=== PATIENT | female | born 1975 | race Caucasian/White ===

== ENCOUNTER 2018-09-01 10:45 | Inpatient (IN) | payer MEDICAID ==
[~2018-09-01] VITALS: Ht 162.6 cm; Wt 85.9 kg
[~2018-09-01 10:45] MED LIST: OMEP20CA10 PO
[2018-09-01] MEDS ORDERED: SODIUM CHLORIDE 0.9% 1,000 ML IV ONE (11:38)
[2018-09-01] MEDS ORDERED: KETOROLAC 30MG/ML VIAL IV STA (11:38)
[2018-09-01] MEDS ORDERED: ASPIRIN 81MG TABLET PO ONE (11:45)
[2018-09-01 12:03] LABS: BASOPHILS % 0.5 % (0.0-2.0); EOSINOPHILS % 0.9 % (0.0-5.0); HEMATOCRIT. 39.1 % (36.0-48.0); HEMOGLOBIN. 13.3 g/dL (12.0-16.0); MEAN CORPUSCULAR HEMOGLOBIN 29.1 pg (28.0-32.0); MEAN CORPUSCULAR VOLUME 85.4 fL (81.0-99.0); MEAN PLATELET VOLUME 7.7 fl (7.4-10.4); MONOCYTES % 5.7 % (2.0-8.0); NEUTROPHILS % 54.9 % (40.0-76.0); PLATELET 328 x1000/uL (130-400); RED BLOOD CELL COUNT 4.58 mill/uL (4.2-5.4); RED CELL DISTRIBUTION WIDTH 14.7 % (11.6-14.6)
[2018-09-01 12:11] LABS: CHLORIDE 106 mEq/L (98-107)
[2018-09-01 12:12] LABS: HCG SCREEN NEGATIVE
[2018-09-01 12:17] LABS: PARTIAL THROMBOPLASTIN TIME 26.3 sec (23.4-31.0); PROTHROMBIN TIME 10.3 sec (9.1-11.1)
[2018-09-01 12:41] LABS: CLARITY URINE CLOUDY (CLEAR); COLOR URINE RED (YELLOW); KETONES URINE NEGATIVE (NEGATIVE); LEUKOCYTE ESTERASE URINE TRACE (NEGATIVE); NITRITE URINE NEGATIVE (NEGATIVE); OCCULT BLOOD URINE 3+ (NEGATIVE); PROTEIN URINE 1+ (NEGATIVE); SPECIFIC GRAVITY URINE 1.008 (1.005-1.030); UROBILINOGEN URINE 0.2 E.U./dL (0.2-1.0)
[2018-09-01] MEDS ORDERED: CEFTRIAXONE 1 G PREMIX 50 ML IV ONE (13:45)
[2018-09-01 18:30] VITALS: BP 114/67
[2018-09-01 20:00] VITALS: BP 119/79
[2018-09-01] MEDS ORDERED: DEXTROSE 50% WATER 50ML SYRINGE IV PRN (22:15)
[2018-09-01] MEDS: ONDANSETRON HCL 4MG/2ML INJ IV PRN (23:01)
[2018-09-01] MEDS: ACETAMINOPHEN 325MG TABLET PO PRN (23:01)
[2018-09-01] MEDS ORDERED: LISI-186 PO (23:50)
[2018-09-01] MEDS ORDERED: METF-414 PO (23:50)
[2018-09-01] MEDS ORDERED: GLIM2TAB2 PO (23:51)
[2018-09-02] VITALS: BP 112/70
[2018-09-02 04:00] VITALS: BP 127/81
[2018-09-02 06:50] LABS: CHLORIDE 107 mEq/L (98-107)
[2018-09-02 07:05] LABS: BASOPHILS % 0.5 % (0.0-2.0); EOSINOPHILS % 1.3 % (0.0-5.0); HEMATOCRIT. 38.5 % (36.0-48.0); HEMOGLOBIN. 12.8 g/dL (12.0-16.0); LYMPHOCYTES % 44.8 % (20.0-50.0); MEAN CORPUSCULAR HEMOGLOBIN 28.6 pg (28.0-32.0); MEAN CORPUSCULAR VOLUME 85.8 fL (81.0-99.0); MEAN PLATELET VOLUME 7.9 fl (7.4-10.4); MONOCYTES % 6.6 % (2.0-8.0); NEUTROPHILS % 46.8 % (40.0-76.0); PLATELET 334 x1000/uL (130-400); RED BLOOD CELL COUNT 4.48 mill/uL (4.2-5.4); RED CELL DISTRIBUTION WIDTH 14.9 % (11.6-14.6)
[2018-09-02 07:16] LABS: LDL CHOLESTEROL 107 mg/dL (5-100)
[2018-09-02 07:18] LABS: CREATINE KINASE 100 IU/L (26-192); HDL CHOLESTEROL 58 mg/dL (40-59)
[2018-09-02 07:20] LABS: CREATINE KINASE MB FRACTION < 1.0 ng/mL (0.5-3.6)
[2018-09-02] MEDS: INSULIN LISPRO 100 UNITS/ML SUBCUT SCH ×4 (07:50→20:44)
[2018-09-02] MEDS: BLOOD SUGAR DIAGNOSTIC STRIP TEST SCH ×4 (07:54→20:44)
[2018-09-02 08:00] VITALS: BP 126/82
[2018-09-02] MEDS: GLIMEPIRIDE 2MG TABLET PO SCH (08:34)
[2018-09-02] MEDS: METFORMIN HCL 500MG TABLET PO SCH (08:34)
[2018-09-02] MEDS: ONDANSETRON HCL 4MG/2ML INJ IV PRN (08:35)
[2018-09-02] MEDS: ENOXAPARIN 40MG/0.4ML SYR SUBCUT SCH (08:35)
[2018-09-02] MEDS: LISINOPRIL 5MG TABLET PO SCH (08:35)
[2018-09-02] MEDS ORDERED: INFLUENZA VIRUS VACCINE(AFLURIA) 0.5ML SYR IM ONE (10:00)
[2018-09-02 12:00] VITALS: BP 109/74
[2018-09-02 12:34] LABS: CREATINE KINASE 98 IU/L (26-192); CREATINE KINASE MB FRACTION < 1.0 ng/mL (0.5-3.6)
[2018-09-02 16:00] VITALS: BP 112/70
[2018-09-02 20:00] VITALS: BP 111/71
[2018-09-02 21:32] LABS: CREATINE KINASE 90 IU/L (26-192)
[2018-09-02 21:33] LABS: CREATINE KINASE MB FRACTION < 1.0 ng/mL (0.5-3.6)
[2018-09-03] VITALS: BP 127/68
[2018-09-03] MEDS: ACETAMINOPHEN 325MG TABLET PO PRN (03:14)
[2018-09-03 04:00] VITALS: BP 104/61
[2018-09-03] MEDS: INSULIN LISPRO 100 UNITS/ML SUBCUT SCH ×4 (06:54→20:23)
[2018-09-03] MEDS: BLOOD SUGAR DIAGNOSTIC STRIP TEST SCH ×4 (06:54→20:23)
[2018-09-03 08:00] VITALS: BP 112/74
[2018-09-03] MEDS: GLIMEPIRIDE 2MG TABLET PO SCH (08:09)
[2018-09-03] MEDS: ENOXAPARIN 40MG/0.4ML SYR SUBCUT SCH (08:09)
[2018-09-03] MEDS: METFORMIN HCL 500MG TABLET PO SCH (08:09)
[2018-09-03] MEDS: LISINOPRIL 5MG TABLET PO SCH (11:26)
[2018-09-03 12:00] VITALS: BP 112/72
[2018-09-03 16:00] VITALS: BP 117/67
[2018-09-03 17:44] LABS: *AMPHETAMINES SCREEN URINE NEGATIVE (NEGATIVE); *BARBITURATES SCREEN URINE NEGATIVE (NEGATIVE)
[2018-09-03 17:45] LABS: *BENZODIAZEPINES SCREEN URINE NEGATIVE (NEGATIVE); *COCAINE SCREEN URINE NEGATIVE (NEGATIVE); CANNABINOID URINE SCREEN NEGATIVE (NEGATIVE); METHADONE URINE SCREEN NEGATIVE (NEGATIVE); OPIATES URINE SCREEN NEGATIVE (NEGATIVE); PHENCYCLIDINE URINE SCREEN NEGATIVE (NEGATIVE)
[2018-09-03 20:00] VITALS: BP 110/83
[2018-09-04] VITALS: BP 106/75
[2018-09-04] MEDS: ACETAMINOPHEN 325MG TABLET PO PRN (00:42)
[2018-09-04 04:00] VITALS: BP 91/55
[2018-09-04] MEDS: BLOOD SUGAR DIAGNOSTIC STRIP TEST SCH ×2 (07:24→12:20)
[2018-09-04] MEDS: INSULIN LISPRO 100 UNITS/ML SUBCUT SCH ×2 (07:50→12:33)
[2018-09-04] MEDS: METFORMIN HCL 500MG TABLET PO SCH (07:50)
[2018-09-04] MEDS: GLIMEPIRIDE 2MG TABLET PO SCH (07:50)
[2018-09-04 08:13] VITALS: BP 130/65
[2018-09-04 08:21] LABS: BASOPHILS % 0.5 % (0.0-2.0); EOSINOPHILS % 1.2 % (0.0-5.0); HEMOGLOBIN. 13.6 g/dL (12.0-16.0); LYMPHOCYTES % 46.1 % (20.0-50.0); MEAN CORPUSCULAR VOLUME 85.7 fL (81.0-99.0); MEAN PLATELET VOLUME 8.1 fl (7.4-10.4); MONOCYTES % 6.8 % (2.0-8.0); NEUTROPHILS % 45.4 % (40.0-76.0); PLATELET 327 x1000/uL (130-400); RED BLOOD CELL COUNT 4.67 mill/uL (4.2-5.4); RED CELL DISTRIBUTION WIDTH 14.7 % (11.6-14.6)
[2018-09-04 08:45] LABS: CHLORIDE 106 mEq/L (98-107)
[2018-09-04] MEDS: ENOXAPARIN 40MG/0.4ML SYR SUBCUT SCH (09:06)
[2018-09-04] MEDS: LISINOPRIL 5MG TABLET PO SCH (09:06)
[2018-09-04] MEDS ORDERED: REGADENOSON 0.4 MG/5 ML IV ONE ×2 (09:15→11:58)
[2018-09-04 12:00] VITALS: BP 103/66
[2018-09-04 16:09] VITALS: BP_SYST 104; BP_SYST 106; BP_DIAS 70; BP_DIAS 71
== END 2018-09-04 18:03 | disposition home or self-care (01) | DRG 203 ==
LOC: ER 10:45 → 6WST 13:26 → EDBEDREQ 13:28 → ENRESERV 15:32
PROVIDERS: ADMIT Internal Medicine; ATTEND Internal Medicine
DX: M94.0 Chondrocostal junction syndrome [Tietze] (principal); M47.029 Vertebral artery compression syndromes, site unspecified; E11.9 Type 2 diabetes mellitus without complications; N39.0 Urinary tract infection, site not specified; I10 Essential (primary) hypertension; Z83.3 Family history of diabetes mellitus; Z82.49 Family history of ischemic heart disease and other diseases of the circulatory system; Z98.891 History of uterine scar from previous surgery; R74.0 Nonspecific elevation of levels of transaminase and lactic acid dehydrogenase [LDH]
CPT/HCPCS: 36415; 71045; 78452; 80048; 80061; 80305; 82550; 82553; 82962; 83036; 83735; 83880; 84484; 84703; 93005; 93017; 93306; 96374; 96375; 99285; A9500; C1893; J0696; J1650; J1885; J2405; J2785; J7030

== ENCOUNTER 2018-11-23 22:49 | Emergency (ER) | payer MEDICAID ==
[~2018-11-23] VITALS: Ht 162.6 cm; Wt 92.0 kg
[~2018-11-23 22:49] MED LIST changes: +GLIM2TAB2 PO; +LISI-186 PO; +METF-414 PO
[2018-11-24 05:01] VITALS: BP 106/65
== END 2018-11-24 05:00 | disposition home or self-care (01) ==
LOC: ER 22:49
DX: R07.89 Other chest pain (principal); R05 Cough; E11.9 Type 2 diabetes mellitus without complications; I10 Essential (primary) hypertension; Z79.84 Long term (current) use of oral hypoglycemic drugs
CPT/HCPCS: 71045; 99283; Z7610

== ENCOUNTER 2018-12-15 10:48 | Emergency (ER) | payer MEDICAID ==
[~2018-12-15] VITALS: Ht 160 cm; Wt 91.0 kg
[~2018-12-15 10:48] MED LIST changes: -OMEP20CA10 PO; +OMEP20CA5 PO
[2018-12-15 11:55] LABS: BASOPHILS % 0.7 % (0.0-2.0); CHLORIDE 106 mEq/L (98-107); EOSINOPHILS % 1.3 % (0.0-5.0); HEMATOCRIT. 37.9 % (36.0-48.0); HEMOGLOBIN. 12.9 g/dL (12.0-16.0); LYMPHOCYTES % 44.1 % (20.0-50.0); MEAN CORPUSCULAR HEMOGLOBIN 29.8 pg (28.0-32.0); MEAN CORPUSCULAR VOLUME 87.8 fL (81.0-99.0); MEAN PLATELET VOLUME 7.4 fl (7.4-10.4); MONOCYTES % 6.3 % (2.0-8.0); NEUTROPHILS % 47.6 % (40.0-76.0); PLATELET 342 x1000/uL (130-400); RED BLOOD CELL COUNT 4.31 mill/uL (4.2-5.4); RED CELL DISTRIBUTION WIDTH 14.7 % (11.6-14.6)
[2018-12-15 12:06] LABS: B-HCG QUANTITATIVE < 1 mIU/mL (<3)
[2018-12-15 14:07] VITALS: BP 143/86
== END 2018-12-15 14:07 | disposition home or self-care (01) ==
LOC: ER 10:48
DX: N39.8 Other specified disorders of urinary system (principal); E11.9 Type 2 diabetes mellitus without complications; Z79.84 Long term (current) use of oral hypoglycemic drugs; Z79.899 Other long term (current) drug therapy
CPT/HCPCS: 36415; 80048; 84702; 86850; 86900; 99283

== ENCOUNTER 2018-12-26 08:59 | Emergency (ER) | payer MEDICAID ==
[~2018-12-26] VITALS: Ht 152.4 cm; Wt 90.0 kg
[2018-12-26 09:19] VITALS: BP 122/76
[2018-12-26] MEDS ORDERED: VISCOUS LIDOCAINE 2% 15 ML UDC MM ONE (11:00)
== END 2018-12-26 12:06 | disposition home or self-care (01) ==
LOC: ER 08:59
DX: J02.9 Acute pharyngitis, unspecified (principal); H61.22 Impacted cerumen, left ear; E11.9 Type 2 diabetes mellitus without complications; I10 Essential (primary) hypertension; Z98.890 Other specified postprocedural states; Z79.899 Other long term (current) drug therapy
CPT/HCPCS: 70360; 99283

== ENCOUNTER 2019-01-17 07:03 | Emergency (ER) | payer MEDICAID ==
[~2019-01-17] VITALS: Ht 165.1 cm; Wt 75.0 kg
[2019-01-17 08:20] LABS: BASOPHILS % 0.4 % (0.0-2.0); EOSINOPHILS % 1.1 % (0.0-5.0); HEMATOCRIT. 36.4 % (36.0-48.0); HEMOGLOBIN. 12.3 g/dL (12.0-16.0); LYMPHOCYTES % 40.5 % (20.0-50.0); MEAN CORPUSCULAR HEMOGLOBIN 29.1 pg (28.0-32.0); MEAN CORPUSCULAR VOLUME 86.2 fL (81.0-99.0); MEAN PLATELET VOLUME 7.3 fl (7.4-10.4); MONOCYTES % 5.6 % (2.0-8.0); NEUTROPHILS % 52.4 % (40.0-76.0); PLATELET 341 x1000/uL (130-400); RED BLOOD CELL COUNT 4.22 mill/uL (4.2-5.4); RED CELL DISTRIBUTION WIDTH 14.3 % (11.6-14.6)
[2019-01-17 08:25] LABS: CLARITY URINE CLOUDY (CLEAR); COLOR URINE YELLOW (YELLOW); KETONES URINE NEGATIVE (NEGATIVE); LEUKOCYTE ESTERASE URINE NEGATIVE (NEGATIVE); NITRITE URINE NEGATIVE (NEGATIVE); OCCULT BLOOD URINE NEGATIVE (NEGATIVE); PH URINE 7.5 (4.5-8.0); PROTEIN URINE NEGATIVE (NEGATIVE); SPECIFIC GRAVITY URINE 1.018 (1.005-1.030); UROBILINOGEN URINE 0.2 E.U./dL (0.2-1.0)
[2019-01-17 08:27] LABS: CHLORIDE 106 mEq/L (98-107)
[2019-01-17 09:01] VITALS: BP 112/69
== END 2019-01-17 09:36 | disposition home or self-care (01) ==
LOC: ER 07:03
DX: E11.40 Type 2 diabetes mellitus with diabetic neuropathy, unspecified (principal); I10 Essential (primary) hypertension; Z98.890 Other specified postprocedural states; Z79.84 Long term (current) use of oral hypoglycemic drugs
CPT/HCPCS: 36415; 80048; 81025; 99283

== ENCOUNTER 2019-01-31 16:40 | Emergency (ER) | payer MEDICAID ==
[~2019-01-31] VITALS: Ht 165.1 cm; Wt 85.0 kg
[2019-01-31 17:10] LABS: CHLORIDE 109 mEq/L (98-107); PROTHROMBIN TIME 10.2 sec (9.6-11.0)
[2019-01-31 17:14] LABS: BASOPHILS % 0.5 % (0.0-2.0); EOSINOPHILS % 0.4 % (0.0-5.0); HEMATOCRIT. 35.7 % (36.0-48.0); HEMOGLOBIN. 11.9 g/dL (12.0-16.0); LYMPHOCYTES % 44.5 % (20.0-50.0); MEAN CORPUSCULAR HEMOGLOBIN 28.8 pg (28.0-32.0); MEAN CORPUSCULAR VOLUME 86.3 fL (81.0-99.0); MEAN PLATELET VOLUME 7.3 fl (7.4-10.4); MONOCYTES % 6.3 % (2.0-8.0); NEUTROPHILS % 48.3 % (40.0-76.0); PLATELET 351 x1000/uL (130-400); RED BLOOD CELL COUNT 4.13 mill/uL (4.2-5.4); RED CELL DISTRIBUTION WIDTH 14.5 % (11.6-14.6)
[2019-01-31 18:34] LABS: CLARITY URINE CLEAR (CLEAR); COLOR URINE YELLOW (YELLOW); KETONES URINE NEGATIVE (NEGATIVE); LEUKOCYTE ESTERASE URINE NEGATIVE (NEGATIVE); NITRITE URINE NEGATIVE (NEGATIVE); OCCULT BLOOD URINE 1+ (NEGATIVE); PH URINE 5.5 (4.5-8.0); PROTEIN URINE NEGATIVE (NEGATIVE); SPECIFIC GRAVITY URINE 1.023 (1.005-1.030)
[2019-01-31 19:52] VITALS: BP 123/80
== END 2019-02-01 00:13 | disposition home or self-care (01) ==
LOC: ER 16:40
DX: R10.13 Epigastric pain (principal); R19.7 Diarrhea, unspecified; I10 Essential (primary) hypertension; E11.9 Type 2 diabetes mellitus without complications; Z98.890 Other specified postprocedural states
CPT/HCPCS: 36415; 81025; 99283

== ENCOUNTER 2019-03-04 07:09 | Emergency (ER) | payer MEDICAID ==
[~2019-03-04] VITALS: Ht 162.6 cm; Wt 89.7 kg
[2019-03-04] MEDS ORDERED: SODIUM CHLORIDE 0.9% 1,000 ML IV ONE (08:09)
[2019-03-04] MEDS ORDERED: MORPHINE SULFATE 2 MG/ML CPJ (NOT FOR IM USE) IV ONE (08:15)
[2019-03-04 09:14] LABS: BASOPHILS % 0.5 % (0.0-2.0); HEMATOCRIT. 37.4 % (36.0-48.0); HEMOGLOBIN. 12.7 g/dL (12.0-16.0); LYMPHOCYTES % 42.3 % (20.0-50.0); MEAN CORPUSCULAR HEMOGLOBIN 29.3 pg (28.0-32.0); MEAN CORPUSCULAR VOLUME 86.1 fL (81.0-99.0); MEAN PLATELET VOLUME 8.1 fl (7.4-10.4); MONOCYTES % 6.2 % (2.0-8.0); PLATELET 345 x1000/uL (130-400); RED BLOOD CELL COUNT 4.34 mill/uL (4.2-5.4); RED CELL DISTRIBUTION WIDTH 14.3 % (11.6-14.6)
[2019-03-04 09:25] LABS: HCG SCREEN NEGATIVE
[2019-03-04 09:32] LABS: CLARITY URINE CLOUDY (CLEAR); COLOR URINE YELLOW (YELLOW); KETONES URINE NEGATIVE (NEGATIVE); LEUKOCYTE ESTERASE URINE TRACE (NEGATIVE); NITRITE URINE NEGATIVE (NEGATIVE); OCCULT BLOOD URINE 3+ (NEGATIVE); PH URINE 5.5 (4.5-8.0); PROTEIN URINE TRACE (NEGATIVE); SPECIFIC GRAVITY URINE 1.021 (1.005-1.030); UROBILINOGEN URINE 0.2 E.U./dL (0.2-1.0)
[2019-03-04 10:31] LABS: CHLORIDE 106 mEq/L (98-107)
[2019-03-04 11:58] VITALS: BP 107/62
== END 2019-03-04 11:58 | disposition home or self-care (01) ==
LOC: ER 07:09
DX: R10.12 Left upper quadrant pain (principal); R10.32 Left lower quadrant pain; R51 Headache; E11.9 Type 2 diabetes mellitus without complications; I10 Essential (primary) hypertension; Z79.84 Long term (current) use of oral hypoglycemic drugs
CPT/HCPCS: 36415; 74176; 80053; 81003; 81025; 82962; 83690; 84703; 85025; 96361; 96374; 99284; J2270; J7030

== ENCOUNTER 2019-04-24 07:26 | Emergency (ER) | payer MEDICAID ==
[~2019-04-24] VITALS: Ht 165.1 cm; Wt 90.0 kg
[2019-04-24] MEDS ORDERED: METOCLOPRAMIDE HCL 10MG/2ML VIAL IV STA (08:55)
[2019-04-24] MEDS ORDERED: ONDANSETRON HCL 4MG/2ML INJ IV STA (08:55)
[2019-04-24] MEDS ORDERED: SODIUM CHLORIDE 0.9% 1,000 ML IV ONE (08:55)
[2019-04-24 09:29] LABS: BASOPHILS % 0.8 % (0.0-2.0); EOSINOPHILS % 0.8 % (0.0-5.0); HEMATOCRIT. 36.5 % (36.0-48.0); HEMOGLOBIN. 12.4 g/dL (12.0-16.0); LYMPHOCYTES % 34.5 % (20.0-50.0); MEAN CORPUSCULAR HEMOGLOBIN 29.1 pg (28.0-32.0); MEAN CORPUSCULAR VOLUME 85.5 fL (81.0-99.0); MEAN PLATELET VOLUME 7.7 fl (7.4-10.4); MONOCYTES % 5.1 % (2.0-8.0); NEUTROPHILS % 58.8 % (40.0-76.0); PLATELET 335 x1000/uL (130-400); RED BLOOD CELL COUNT 4.27 mill/uL (4.2-5.4); RED CELL DISTRIBUTION WIDTH 14.1 % (11.6-14.6)
[2019-04-24 09:37] LABS: CHLORIDE 105 mEq/L (98-107)
[2019-04-24 10:48] LABS: CLARITY URINE TURBID (CLEAR); COLOR URINE RED (YELLOW); KETONES URINE NEGATIVE (NEGATIVE); LEUKOCYTE ESTERASE URINE 2+ (NEGATIVE); NITRITE URINE NEGATIVE (NEGATIVE); OCCULT BLOOD URINE 3+ (NEGATIVE); PROTEIN URINE 2+ (NEGATIVE); SPECIFIC GRAVITY URINE 1.022 (1.005-1.030); UROBILINOGEN URINE 0.2 E.U./dL (0.2-1.0)
[2019-04-24] MEDS ORDERED: IOHEXOL-300 100 ML BOTTLE ONE (10:59)
[2019-04-24 13:20] VITALS: BP 124/65
[2019-04-26 04:07] LABS: CHLAMYDIA TRACHOMATIS NAA Negative (Negative); NEISSERIA GONORRHOEAE NAA Negative (Negative)
== END 2019-04-24 13:46 | disposition home or self-care (01) ==
LOC: ER 07:26
DX: N93.9 Abnormal uterine and vaginal bleeding, unspecified (principal); E11.9 Type 2 diabetes mellitus without complications; I10 Essential (primary) hypertension; Z79.899 Other long term (current) drug therapy; Z79.84 Long term (current) use of oral hypoglycemic drugs
CPT/HCPCS: 36415; 74177; 76830; 76856; 80053; 81003; 83690; 85025; 87210; 87491; 87591; 96374; 99284; A4217; J2405; J7030; Q9967; Z7610

== ENCOUNTER 2019-05-09 13:45 | Emergency (ER) | payer MEDICAID ==
[~2019-05-09] VITALS: Ht 152.4 cm; Wt 98.0 kg
[2019-05-09 14:04] VITALS: BP 121/73
[2019-05-09 15:50] LABS: CLARITY URINE CLEAR (CLEAR); COLOR URINE YELLOW (YELLOW); KETONES URINE TRACE (NEGATIVE); LEUKOCYTE ESTERASE URINE NEGATIVE (NEGATIVE); NITRITE URINE NEGATIVE (NEGATIVE); OCCULT BLOOD URINE NEGATIVE (NEGATIVE); PH URINE 6.5 (4.5-8.0); PROTEIN URINE NEGATIVE (NEGATIVE); SPECIFIC GRAVITY URINE 1.021 (1.005-1.030); UROBILINOGEN URINE 0.2 E.U./dL (0.2-1.0)
== END 2019-05-09 17:41 | disposition home or self-care (01) ==
LOC: ER 13:45
DX: R30.0 Dysuria (principal); I10 Essential (primary) hypertension
CPT/HCPCS: 81003; 99283

== ENCOUNTER 2019-05-13 08:50 | Emergency (ER) | payer MEDICAID ==
[~2019-05-13] VITALS: Ht 162.6 cm; Wt 75.0 kg
[2019-05-13] MEDS ORDERED: SODIUM CHLORIDE 0.9% 1,000 ML IV ONE (09:35)
[2019-05-13] MEDS ORDERED: MORPHINE SULFATE 4 MG/ML CPJ (NOT FOR IM USE) IV STA (09:35)
[2019-05-13] MEDS ORDERED: ONDANSETRON HCL 4MG/2ML INJ IV STA (09:35)
[2019-05-13] MEDS ORDERED: KETOROLAC 30MG/ML VIAL IV STA (09:35)
[2019-05-13 10:09] LABS: BASOPHILS % 0.3 % (0.0-2.0); EOSINOPHILS % 2.2 % (0.0-5.0); HEMATOCRIT. 38.1 % (36.0-48.0); HEMOGLOBIN. 13.1 g/dL (12.0-16.0); MEAN CORPUSCULAR HEMOGLOBIN 29.5 pg (28.0-32.0); MEAN PLATELET VOLUME 7.7 fl (7.4-10.4); MONOCYTES % 5.6 % (2.0-8.0); NEUTROPHILS % 62.9 % (40.0-76.0); PLATELET 323 x1000/uL (130-400); RED BLOOD CELL COUNT 4.44 mill/uL (4.2-5.4); RED CELL DISTRIBUTION WIDTH 14.6 % (11.6-14.6)
[2019-05-13 10:10] LABS: CHLORIDE 105 mEq/L (98-107)
[2019-05-13 10:11] LABS: CLARITY URINE CLOUDY (CLEAR); COLOR URINE YELLOW (YELLOW); KETONES URINE 1+ (NEGATIVE); LEUKOCYTE ESTERASE URINE TRACE (NEGATIVE); NITRITE URINE NEGATIVE (NEGATIVE); OCCULT BLOOD URINE NEGATIVE (NEGATIVE); PH URINE 5.5 (4.5-8.0); PROTEIN URINE NEGATIVE (NEGATIVE); SPECIFIC GRAVITY URINE 1.019 (1.005-1.030)
[2019-05-13 10:15] LABS: HCG SCREEN NEGATIVE
[2019-05-13 13:30] VITALS: BP 119/65
== END 2019-05-13 13:25 | disposition home or self-care (01) ==
LOC: ER 08:50
DX: N23 Unspecified renal colic (principal); N83.299 Other ovarian cyst, unspecified side; E11.9 Type 2 diabetes mellitus without complications; I10 Essential (primary) hypertension; R53.1 Weakness; R05 Cough; R11.0 Nausea; Z98.890 Other specified postprocedural states; Z79.899 Other long term (current) drug therapy; Z79.84 Long term (current) use of oral hypoglycemic drugs
CPT/HCPCS: 36415; 71045; 74176; 80053; 81003; 83605; 83690; 83880; 84484; 84703; 85025; 87040; 87086; 93005; 96374; 96375; 99284; J1885; J2270; J2405; J7030

== ENCOUNTER 2019-07-07 13:09 | Emergency (ER) | payer MEDICAID ==
[~2019-07-07] VITALS: Ht 152.4 cm; Wt 89.0 kg
[2019-07-07 14:21] VITALS: BP 125/71
[2019-07-07] MEDS ORDERED: ACETAMINOPHEN 500MG TABLET PO NR (16:45)
== END 2019-07-07 20:15 | disposition home or self-care (01) ==
LOC: ER 15:17
DX: R51 Headache (principal); E11.9 Type 2 diabetes mellitus without complications; I10 Essential (primary) hypertension; Z98.890 Other specified postprocedural states; Z79.899 Other long term (current) drug therapy
CPT/HCPCS: 81025; 82962; 99284

== ENCOUNTER 2019-08-13 22:41 | Emergency (ER) | payer MEDICAID ==
[~2019-08-13] VITALS: Ht 152.4 cm; Wt 92.5 kg
[~2019-08-13 22:41] MED LIST changes: -GLIM2TAB2 PO; +GLIM2TAB30 PO; +OMEP20CA14 PO; -OMEP20CA5 PO
[2019-08-14 02:03] LABS: BASOPHILS % 0.5 % (0.0-2.0); EOSINOPHILS % 0.8 % (0.0-5.0); HEMATOCRIT. 38.9 % (36.0-48.0); HEMOGLOBIN. 13.1 g/dL (12.0-16.0); LYMPHOCYTES % 46.3 % (20.0-50.0); MEAN CORPUSCULAR HEMOGLOBIN 29.1 pg (28.0-32.0); MEAN CORPUSCULAR VOLUME 86.5 fL (81.0-99.0); MEAN PLATELET VOLUME 8.2 fl (7.4-10.4); NEUTROPHILS % 46.4 % (40.0-76.0); PLATELET 347 x1000/uL (130-400); RED CELL DISTRIBUTION WIDTH 14.2 % (11.6-14.6)
[2019-08-14 02:07] LABS: CHLORIDE 106 mEq/L (98-107)
[2019-08-14 04:55] VITALS: BP 116/71
== END 2019-08-14 04:57 | disposition home or self-care (01) ==
LOC: ER 22:41
DX: R07.89 Other chest pain (principal); E11.9 Type 2 diabetes mellitus without complications; I10 Essential (primary) hypertension; Z98.890 Other specified postprocedural states; Z79.899 Other long term (current) drug therapy
CPT/HCPCS: 36415; 71045; 80053; 81025; 84484; 85025; 85379; 93005; 99284

== ENCOUNTER 2020-01-23 09:28 | Emergency (ER) | payer MEDICAID ==
[~2020-01-23] VITALS: Ht 160 cm; Wt 91.0 kg
[2020-01-23 09:49] VITALS: BP 129/86
[2020-01-23 10:29] LABS: CLARITY URINE CLOUDY (CLEAR); COLOR URINE YELLOW (YELLOW); KETONES URINE 1+ (NEGATIVE); LEUKOCYTE ESTERASE URINE 2+ (NEGATIVE); NITRITE URINE NEGATIVE (NEGATIVE); OCCULT BLOOD URINE TRACE (NEGATIVE); PROTEIN URINE NEGATIVE (NEGATIVE); SPECIFIC GRAVITY URINE 1.028 (1.005-1.030); UROBILINOGEN URINE 0.2 E.U./dL (0.2-1.0)
[2020-01-23] MEDS ORDERED: ACETAMINOPHEN 325MG TABLET PO ONE (10:45)
== END 2020-01-23 11:04 | disposition home or self-care (01) ==
LOC: ER 09:28
DX: N39.0 Urinary tract infection, site not specified (principal); E11.9 Type 2 diabetes mellitus without complications; I10 Essential (primary) hypertension; Z98.890 Other specified postprocedural states; Z79.84 Long term (current) use of oral hypoglycemic drugs
CPT/HCPCS: 81003; 81025; 99283

== ENCOUNTER 2021-05-24 12:23 | Emergency (ER) | payer MEDICAID ==
[~2021-05-24] VITALS: Ht 154.9 cm; Wt 93.0 kg
[2021-05-24 12:59] VITALS: BP 133/97
[2021-05-24] MEDS ORDERED: MAGNESIUM/ALUMINUM HYDROXIDE/SIMETHICONE 30ML UDC PO ONE (15:45)
[2021-05-24] MEDS ORDERED: ONDANSETRON 4MG ODT PO ONE (15:45)
[2021-05-24] MEDS ORDERED: FAMOTIDINE 20MG TABLET PO ONE (15:45)
[2021-05-24 15:53] LABS: CLARITY URINE CLOUDY (CLEAR); COLOR URINE YELLOW (YELLOW); KETONES URINE 1+ (NEGATIVE); LEUKOCYTE ESTERASE URINE TRACE (NEGATIVE); NITRITE URINE NEGATIVE (NEGATIVE); OCCULT BLOOD URINE 2+ (NEGATIVE); PH URINE 5.5 (4.5-8.0); PROTEIN URINE TRACE (NEGATIVE); SPECIFIC GRAVITY URINE 1.044 (1.005-1.030); UROBILINOGEN URINE 0.2 E.U./dL (0.2-1.0)
[2021-05-24 15:58] LABS: UCG SCREEN NEGATIVE
[2021-05-24] MEDS ORDERED: FLUCONAZOLE 100MG TABLET PO NR (16:21)
[2021-05-24] MEDS ORDERED: CEPHALEXIN 250MG CAPSULE PO NR (16:21)
[2021-05-24] MEDS ORDERED: FAMO20TA8 MT (16:42)
[2021-05-24] MEDS ORDERED: CEPH500C2 MT (16:42)
== END 2021-05-24 16:52 ==
LOC: ER 12:23
DX: N39.0 Urinary tract infection, site not specified (principal); E11.65 Type 2 diabetes mellitus with hyperglycemia; B37.3 Candidiasis of vulva and vagina
CPT/HCPCS: 81003; 81025; 82962; 99284; Q0162